=== PATIENT | male | born 1955 | race Two or more races ===

== ENCOUNTER 2021-08-19 12:23 | Day surgery (SDC) | payer MEDICARE ==
[~2021-08-19 12:23] MED LIST: Lactated Ringers 1,000 ML IV SCH; Sodium Chloride 0.9% 10 ML Syringe FLUSH PRN
[2021-08-19] MEDS ORDERED: Propofol 200 MG/20 ML SDV IV ONE (12:24)
== END 2021-08-19 15:55 | disposition home or self-care (01) ==
LOC: FB.SDS 12:23
PROVIDERS: ATTEND Surgery
DX: Z12.11 Encounter for screening for malignant neoplasm of colon (principal); N40.2 Nodular prostate without lower urinary tract symptoms; K56.2 Volvulus; Q43.8 Other specified congenital malformations of intestine; E78.00 Pure hypercholesterolemia, unspecified; I10 Essential (primary) hypertension; E66.01 Morbid (severe) obesity due to excess calories; Z86.010 Personal history of colon polyps; Z98.890 Other specified postprocedural states; Z79.899 Other long term (current) drug therapy; Z68.39 Body mass index [BMI] 39.0-39.9, adult
CPT/HCPCS: 00812-QZ; J2704; J7120